=== PATIENT | male | born 1930 | race Caucasian/White ===

== ENCOUNTER 2019-07-03 12:08 | Emergency (ER) | payer OTHER ==
[~2019-07-03] VITALS: Ht 177.8 cm; Wt 77.0 kg
[2019-07-03] MEDS ORDERED: SODIUM CHLORIDE 0.9% 1,000 ML IV ONE (12:46)
[2019-07-03 13:02] LABS: BASOPHILS % 0.8 % (0.0-2.0); EOSINOPHILS % 0.8 % (0.0-5.0); HEMATOCRIT. 40.6 % (42.0-52.0); HEMOGLOBIN. 13.9 g/dL (14.0-18.0); LYMPHOCYTES % 22.7 % (20.0-50.0); MEAN CORPUSCULAR HEMOGLOBIN 34.6 pg (28.0-32.0); MEAN PLATELET VOLUME 8.2 fl (7.4-10.4); MONOCYTES % 10.2 % (2.0-8.0); NEUTROPHILS % 65.5 % (40.0-76.0); PLATELET 183 x1000/uL (130-400); RED BLOOD CELL COUNT 4.02 mill/uL (4.7-6.1); RED CELL DISTRIBUTION WIDTH 13.6 % (11.6-14.6)
[2019-07-03 13:07] LABS: CHLORIDE 106 mEq/L (98-107)
[2019-07-03] MEDS ORDERED: ASPIRIN 81MG TABLET PO ONE (14:30)
[2019-07-03 15:54] VITALS: BP 144/77
== END 2019-07-03 15:54 | disposition left against medical advice (07) ==
LOC: ER 12:08
DX: R55 Syncope and collapse (principal); Z85.46 Personal history of malignant neoplasm of prostate
CPT/HCPCS: 36415; 71045; 80053; 83735; 83880; 84484; 85025; 93005; 99284; J7030